=== PATIENT | female | born 1975 | race Two or more races ===

== ENCOUNTER → 2017-09-22 | Emergency (ER) | payer OTHER ==
[~2017-09-22] VITALS: Ht 162.6 cm; Wt 54.4 kg
[~2017-09-22] MED LIST: IMODIUM A-D2 MG PO; PROTONIX40 M1 PO; ZOFRAN4 MG PO
== END | disposition home or self-care (01) ==
LOC: ER 20:32
DX: J03.80 Acute tonsillitis due to other specified organisms (principal)

== ENCOUNTER 2017-10-30 17:12 | Emergency (ER) | payer OTHER ==
[~2017-10-30] VITALS: Ht 162.6 cm; Wt 54.4 kg
== END 2017-10-30 18:02 | disposition home or self-care (01) ==
LOC: ER 17:12
DX: M54.2 Cervicalgia (principal)

== ENCOUNTER 2018-01-03 00:11 | Emergency (ER) | payer OTHER ==
[~2018-01-03] VITALS: Ht 162.6 cm; Wt 54.4 kg
== END 2018-01-03 14:19 | disposition home or self-care (01) ==
LOC: ER 00:11
DX: O20.8 Other hemorrhage in early pregnancy (principal); Z34.01 Encounter for supervision of normal first pregnancy, first trimester

== ENCOUNTER → 2018-01-25 | Emergency (ER) | payer OTHER ==
[~2018-01-25] VITALS: Ht 162.6 cm; Wt 57.6 kg
== END | disposition home or self-care (01) ==
LOC: ER 19:39
DX: O20.8 Other hemorrhage in early pregnancy (principal); Z34.01 Encounter for supervision of normal first pregnancy, first trimester

== ENCOUNTER 2018-02-17 13:54 | Outpatient (CLI) | payer OTHER | END 2018-02-17 14:00 | disposition home or self-care (01) | LOC: SONOGRAMA 13:54 | DX: N60.11 Diffuse cystic mastopathy of right breast (principal); N60.12 Diffuse cystic mastopathy of left breast ==

== ENCOUNTER 2018-06-08 18:22 | Outpatient (CLI) | payer OTHER | END 2018-06-08 20:00 | disposition home or self-care (01) | LOC: NST 18:22 | DX: O26.892 Other specified pregnancy related conditions, second trimester (principal); R10.2 Pelvic and perineal pain; Z34.82 Encounter for supervision of other normal pregnancy, second trimester ==

== ENCOUNTER 2019-09-04 11:53 | Outpatient (CLI) | payer OTHER ==
[~2019-09-04 11:53] MED LIST changes: +PRENATABS RX T1 EACH PO
== END 2019-09-04 15:03 | disposition home or self-care (01) ==
LOC: TOM 11:53
DX: J18.8 Other pneumonia, unspecified organism (principal); J20.8 Acute bronchitis due to other specified organisms

== ENCOUNTER 2020-01-24 11:49 | Outpatient (CLI) | payer OTHER | END 2020-01-24 11:55 | disposition home or self-care (01) | LOC: RAD 11:49 → TOM 12:15 | PROVIDERS: ATTEND Internal Medicine Endocrinology, Diabetes & Metabolism | DX: E06.3 Autoimmune thyroiditis (principal); E04.2 Nontoxic multinodular goiter; J32.4 Chronic pansinusitis ==

== ENCOUNTER 2020-03-12 14:15 | Outpatient (CLI) | payer OTHER | END 2020-03-12 14:30 | disposition home or self-care (01) | LOC: MAMO-SONO 14:15 | PROVIDERS: ATTEND Obstetrics & Gynecology | DX: Z12.31 Encounter for screening mammogram for malignant neoplasm of breast (principal); N60.11 Diffuse cystic mastopathy of right breast ==

== ENCOUNTER 2020-04-03 14:41 | Outpatient (CLI) | payer OTHER | END 2020-04-03 14:50 | disposition home or self-care (01) | LOC: SONOGRAMA 14:41 | PROVIDERS: ATTEND Obstetrics & Gynecology | DX: N60.11 Diffuse cystic mastopathy of right breast (principal) ==

== ENCOUNTER 2023-03-18 11:53 | Outpatient (CLI) | payer OTHER | END 2023-03-18 12:02 | disposition home or self-care (01) | LOC: SONOGRAMA 11:53 | PROVIDERS: ATTEND Obstetrics & Gynecology | DX: R10.2 Pelvic and perineal pain (principal) ==

== ENCOUNTER 2023-03-21 12:08 | Emergency (ER) | payer OTHER ==
[~2023-03-21] VITALS: Ht 165.1 cm; Wt 59.0 kg
== END 2023-03-21 16:30 | disposition home or self-care (01) ==
LOC: ER 12:08
DX: K64.8 Other hemorrhoids (principal)

== ENCOUNTER 2024-02-26 22:04 | Emergency (ER) | payer OTHER ==
[~2024-02-26] VITALS: Ht 165.1 cm; Wt 59.0 kg
[2024-02-26] MEDS ORDERED: ONDANSETRON HCL 2 MG/ML VIAL IV ONE (23:00)
[2024-02-26] MEDS ORDERED: 0.9 % SODIUM CHLORIDE 1,000 ML IV SCH (23:00)
[2024-02-26] MEDS ORDERED: FAMOTIDINE/PF 20 MG/2 ML VIAL IV PUSH ONE (23:00)
[2024-02-26] MEDS ORDERED: HYOSCYAMINE SULFATE 0.125 MG TAB.SUBL SL ONE (23:15)
[2024-02-26] MEDS ORDERED: HYOSCYAMINE SULFATE 0.125 MG TAB.SUBL ONE (23:15)
[2024-02-26] MEDS ORDERED: ONDANSETRON HCL 2 MG/ML VIAL ONE (23:15)
[2024-02-26] MEDS ORDERED: FAMOtidine 200mg/20ml VIAL ONE (23:15)
[2024-02-26 23:34] LABS: HEMATOCRIT 36.1 % (36.0-45.00); HEMOGLOBIN 12.5 g/dL (12.0-15.00); MEAN CORPUSCULAR HEMOGLOBIN 29.8 pg (27.00-32.0); MEAN CORPUSCULAR HGB CONC 34.7 g/dl (32.0-36.0); PLATELET COUNT 211 K/uL (150-450); RED CELL DISTRIBUTION WIDTH 13.7 % (11.5-14.5)
[2024-02-26] MEDS ORDERED: MEPERIDINE HCL/PF 25 MG/ML VIAL IV ONE (23:45)
[2024-02-26 23:46] LABS: CALCIUM 9.2 mg/dL (8.5-10.1); CREATININE SERUM 0.68 mg/dL (0.55-1.02); GFR 92.74; POTASSIUM 3.66 mEq/L (3.5-5.1)
== END 2024-02-27 02:52 | disposition home or self-care (01) ==
LOC: ER 22:04
PROVIDERS: Emergency Medicine
DX: K52.9 Noninfective gastroenteritis and colitis, unspecified (principal); R10.13 Epigastric pain

== ENCOUNTER 2025-02-27 11:57 | Outpatient (CLI) | payer OTHER | END 2025-02-27 11:59 | disposition home or self-care (01) | LOC: TOM 11:57 | PROVIDERS: ATTEND Otolaryngology | DX: J32.4 Chronic pansinusitis (principal) ==